=== PATIENT | female | born 1965 | race Two or more races ===

== ENCOUNTER 2022-08-23 22:56 | Inpatient (IN) | payer BC, OTHER ==
[~2022-08-23] VITALS: Ht 170.2 cm; Wt 56.7 kg
--- NOTE | 2022-08-23 23:05 | NUR ---
DREA 878 FROM HOME FOR C/O ABD PAIN AND N/V X 1 HOUR. PT HAD ERCP AT [facility] TODAY. PT AAOX4 BREATHING EVENLYU AND UNLABORED. PT TEARFUL AND UNCONSOLABLE. PT ATTACHED TO MONITOR AND POX.
[2022-08-23] MEDS ORDERED: ONDANSETRON HCL/PF 4 MG/2 ML VIAL IVP ONE (23:30)
[2022-08-23] MEDS ORDERED: HYDROMORPHONE INJ 2 MG/ML DISP.SYRIN IV ONE (23:30)
[2022-08-23] MEDS ORDERED: IV NS 0.9% 1,000 ML BAG IV ONE (23:30)
[2022-08-23] MEDS ORDERED: ONDANSETRON HCL/PF 4 MG/2 ML VIAL ONE (23:31)
[2022-08-23] MEDS ORDERED: HYDROMORPHONE 1 MG/1 ML DISP.SYRIN ONE (23:32)
[2022-08-23] MEDS ORDERED: IV NS 0.9% 250 ML IV ONE (23:39)
[2022-08-23] MEDS ORDERED: CT SWABBABLE VALVE TRANS SET 1 EA INFUS.SET MC ONE (23:39)
[2022-08-23] MEDS ORDERED: IOHEXOL-300 100 ML VIAL IV ONE (23:39)
--- NOTE | 2022-08-24 00:49 | NUR ---
LAB AT BEDSIDE
[2022-08-24 01:13] LABS: BASOPHILS % (AUTO) 0.1 % (0.0-2.0); EOSINOPHILS % (AUTO) 0.1 % (0.0-6.0); HEMATOCRIT 44 % (33-45); HEMOGLOBIN 14.3 g/dL (11.5-14.8); LYMPHOCYTES # (AUTO) 0.6 K/uL (0.8-4.8); LYMPHOCYTES % (AUTO) 4.2 % (20.0-44.0); MEAN CORPUSCULAR HGB CONC 33 g/dl (31.0-36.0); MEAN CORPUSCULAR VOLUME 90 fL (82-100); MONOCYTES # (AUTO) 0.9 K/uL (0.1-1.30); MONOCYTES % (AUTO) 5.8 % (2.0-12.0); NEUTROPHILS # (AUTO) 13.5 K/uL (1.8-8.9); NEUTROPHILS % (AUTO) 89.8 % (43.0-81.0); PLATELET COUNT (AUTO) 248 K/uL (150-450); RED BLOOD CELL COUNT(AUTO) 4.89 MIL/uL (4.0-5.2)
[2022-08-24 01:19] LABS: CALCIUM, SERUM 8.8 mg/dL (8.5-10.1); CREATININE 0.6 mg/dL (0.6-1.3); POTASSIUM 3.4 mmol/L (3.5-5.1)
[2022-08-24 01:25] LABS: ALBUMIN 3.9 g/dL (3.4-5.0); BILIRUBIN,DIRECT 0.8 mg/dL (0.0-0.2); BILIRUBIN,TOTAL 1.7 mg/dL (0.2-1.0); TOTAL PROTEIN, SERUM 7.3 g/dL (6.4-8.2)
[2022-08-24] MEDS ORDERED: ONDANSETRON HCL/PF 4 MG/2 ML VIAL ONE (01:35)
--- NOTE | 2022-08-24 01:42 | NUR ---
URINE SPECIMEN SENT TO LAB
--- NOTE | 2022-08-24 01:44 | NUR ---
URINE AND COVID SAMPLE OBTAINED, CALLED LAB FOR TECHNOLOGY SALES SPECIALIST
[2022-08-24] MEDS ORDERED: HYDROMORPHONE 1 MG/1 ML DISP.SYRIN ONE (01:47)
[2022-08-24] MEDS ORDERED: PIPERACILLIN /TAZOBACTAM 3.375 G VIAL IV ONE (01:53)
--- NOTE | 2022-08-24 01:53 | NUR ---
COVID SWAB DONE AND SENT TO LAB
--- NOTE | 2022-08-24 01:59 | NUR ---
ATTEMPTED TO PAGE DR RUSS JOHNSTON - [phone]. AFTER HOURS ANSWERING SERVICE.
[2022-08-24] MEDS ORDERED: HYDROMORPHONE 1 MG/1 ML DISP.SYRIN IV ONE (02:00)
[2022-08-24] MEDS ORDERED: ONDANSETRON HCL/PF 4 MG/2 ML VIAL IV ONE (02:00)
[2022-08-24] MEDS ORDERED: PIPERACILLIN /TAZOBACTAM 3.375 G in IV D5W 50 ML IV ONE (02:00)
[2022-08-24 02:37] LABS: BILIRUBIN,URINE NEGATIVE (NEGATIVE); COLOR,URINE YELLOW (YELLOW); LEUKOCYTE ESTERASE ,URINE NEGATIVE (NEGATIVE); NITRITE, URINE NEGATIVE (NEGATIVE); PROTEIN,URINE NEGATIVE (NEGATIVE); UGLUCOSE NEGATIVE (NEGATIVE); UROBILINOGEN,URINE 0.2 EU/dL (0.2)
[2022-08-24 02:40] LABS: BACTERIA,URINE Rare /HPF (None Seen); SQUAMOUS EPITHELIAL CELL,UR Few /HPF (None Seen); WBC,URINE 0-2 /HPF (0-3)
--- NOTE | 2022-08-24 03:28 | NUR ---
FACESHEET AND CLINICALS FAXED TO [facility].
[2022-08-24] MEDS ORDERED: IV NS 0.9% 500 ML BAG IV ONE (05:00)
--- NOTE | 2022-08-24 05:57 | NUR ---
315-2. PER SPONGE BUFFER. TO GIVE REPORT AFTER CHANGE OF SHIFT.
[2022-08-24] MEDS ORDERED: IV NS 0.9% 1,000 ML BAG IV ONE (06:00)
[2022-08-24] MEDS ORDERED: IV NS 0.9% 1,000 ML IV PRN (06:30)
[2022-08-24] MEDS ORDERED: Z GUARD REMEDY 4 OZ OINT TP PRN (06:30)
[2022-08-24] MEDS ORDERED: ONDANSETRON HCL/PF 4 MG/2 ML VIAL IVP PRN (06:30)
[2022-08-24] MEDS ORDERED: HYDROMORPHONE 1 MG/1 ML DISP.SYRIN IV PRN (07:00)
--- NOTE | 2022-08-24 07:33 | NUR ---
PT REPORT GIVEN TO CHARLIE YOUNG. ROOM 320 PER CHARGE NURSE.
[2022-08-24] MEDS ORDERED: PYRI60TA PO (07:49)
--- NOTE | 2022-08-24 07:58 | NUR ---
pt transferred to 320 via gurney. warm handoff given to rn assigned.
[2022-08-24 08:00] VITALS: BP 127/79
--- NOTE | 2022-08-24 08:10 | NUR ---
RN Receiving Report/Admit. Patient arrived to unit stable. Physician at bedside discussing plan of care with patient and daughter. Patient AOx4, able to express her own concerns. Patient is able to ambulate with steady gait. IN on left hand with no signs of infiltration, no pain reported when providing line care. All safety precautions taken, will follow physicians orders, provide care as needed, and administer medications as prescribed. Call light and table within reach, bed at lowest position. Patient oriented to unit, asked to call for assistance when needed.
[2022-08-24] MEDS ORDERED: MORPHINE SULFATE INJ 2 MG/ML DISP.SYRIN IV PRN (09:00)
[2022-08-24] MEDS ORDERED: PANTOPRAZOLE 40 MG VIAL IV SCH (09:00)
[2022-08-24] MEDS: ENOXAPARIN SODIUM 40 MG/0.4 ML DISP.SYRIN SQ SCH (09:40)
[2022-08-24] MEDS ORDERED: POTASSIUM CHLORIDE 20 MEQ POWDER PACKET PO SCH (10:00)
[2022-08-24] MEDS: PIPERACILLIN /TAZOBACTAM 3.375 G in IV D5W 100 ML IV SCH ×2 (10:25→16:16)
[2022-08-24] MEDS: PYRIDOSTIGMINE BROMIDE 60 MG TABLET PO SCH ×3 (10:25→16:16)
[2022-08-24] MEDS ORDERED: PIPERACILLIN /TAZOBACTAM 3.375 G in IV D5W 50 ML IV SCH (13:00)
[2022-08-24] MEDS ORDERED: ACETAMINOPHEN 325 MG TABLET PO PRN ×2 (13:30→18:20)
[2022-08-24 16:00] VITALS: BP 106/46
--- NOTE | 2022-08-24 17:40 | NUR ---
RN Closing Report Patient AOx4 able to express her concerns. Patient remained safe throughout shift, all safety precautions taken.Care provided as needed and medications administered as prescribed. IV fluids running as ordered, no signs of infiltration. Table and call light within reach, bed at lowest position. Will endorse to night nurse for continuity of care.
--- NOTE | 2022-08-24 19:17 | NUR ---
Patient remained safe throughout shift, stating pain was from 0-3. At around 7pm patients daughter at bedside, patient crying statin pain is 10/10, administered pain medication and zofran as prescribed. Endorsed report to night nurse for continuity of care.
--- NOTE | 2022-08-24 19:45 | NUR ---
MS RN OPENING NOTE: PATIENT WITH ACUTE PANCREATITIS POST ERCP. HX INCLUDES ALS AND MYASTHENIA GRAVIS. A/O X 4 AND ABLE TO MAKE NEEDS KNOWN. IV ACCESS TO LEFT HAND 20 G RUNNING NS AT 75 ML/HR. MORPHINE 4 MG/2ML GIVEN EVERY 4 HOURS FOR PAIN. SAFETY PRECAUTIONS IN PLACE: BED IN LOWEST, LOCKED POSITION, SIDE RAILS UP X 2, TRAY TABLE AND CALL LIGHT WITHIN EASY REACH. WILL CONTINUE TO MONITOR.
[2022-08-24 20:00] VITALS: BP 142/80
[2022-08-24] MEDS: MORPHINE SULFATE INJ 2 MG/ML DISP.SYRIN IV PRN (22:07)
[2022-08-25] MEDS: PIPERACILLIN /TAZOBACTAM 3.375 G in IV D5W 100 ML IV SCH (00:29)
[2022-08-25] MEDS: MORPHINE SULFATE INJ 2 MG/ML DISP.SYRIN IV PRN ×2 (02:23→06:16)
[2022-08-25 06:54] LABS: BASOPHILS % (AUTO) 0.3 % (0.0-2.0); EOSINOPHILS % (AUTO) 1.4 % (0.0-6.0); HEMATOCRIT 35 % (33-45); HEMOGLOBIN 11.8 g/dL (11.5-14.8); LYMPHOCYTES # (AUTO) 1.6 K/uL (0.8-4.8); LYMPHOCYTES % (AUTO) 15.5 % (20.0-44.0); MEAN CORPUSCULAR HGB CONC 34 g/dl (31.0-36.0); MEAN CORPUSCULAR VOLUME 90 fL (82-100); MONOCYTES % (AUTO) 9.6 % (2.0-12.0); NEUTROPHILS # (AUTO) 7.3 K/uL (1.8-8.9); NEUTROPHILS % (AUTO) 73.2 % (43.0-81.0); PLATELET COUNT (AUTO) 222 K/uL (150-450)
--- NOTE | 2022-08-25 07:37 | NUR ---
MS RN OPENING NOTES PT RECEIVED, AWAKE IN BED. A/O X4. ON RA WITH NO SIGNS OF SOB AND LABORED BREATHING. PT DENIES PAIN OR N/V. COOPERATIVE AND ABLE TO MAKE NEEDS KNOWN. IV ACCESS LEFT HAND #20G RUNNING NS @ 75 ML/HR, PATENT AND INTACT. SAFETY PRECAUTIONS IN PLACE. BED IN LOWEST, LOCKED POSITION. SIDE RAILS UP X2. CALL LIGHT WITHIN REACH. WILL CONTINUE TO MONITOR.
[2022-08-25 07:46] LABS: CALCIUM, SERUM 8.3 mg/dL (8.5-10.1); CREATININE 0.5 mg/dL (0.6-1.3); MAGNESIUM 1.8 mg/dL (1.8-2.4); PHOSPHORUS 3.2 mg/dL (2.5-4.9)
[2022-08-25 07:57] LABS: ALBUMIN 3.1 g/dL (3.4-5.0); BILIRUBIN,DIRECT 1.5 mg/dL (0.0-0.2); BILIRUBIN,TOTAL 2.4 mg/dL (0.2-1.0); TOTAL PROTEIN, SERUM 5.9 g/dL (6.4-8.2)
--- NOTE | 2022-08-25 08:34 | NUR ---
MS RN CLOSING NOTE: PATIENT WITH ACUTE PANCREATITIS POST ERCP. HX INCLUDES ALS AND MYASTHENIA GRAVIS. A/O X 4 AND ABLE TO MAKE NEEDS KNOWN. IV ACCESS TO LEFT HAND 20 G RUNNING NS AT 75 ML/HR. MORPHINE 4 MG/2ML GIVEN EVERY 4 HOURS FOR PAIN. SAFETY PRECAUTIONS MAINTAINED: BED IN LOWEST, LOCKED POSITION, SIDE RAILS UP X 2, TRAY TABLE AND CALL LIGHT WITHIN EASY REACH. WILL ENDORSE TO NEXT SHIFT FOR ROBERT.
[2022-08-25 08:42] VITALS: BP 102/64
[2022-08-25 08:55] LABS: POTASSIUM 2.4 mmol/L (3.5-5.1)
[2022-08-25] MEDS: PYRIDOSTIGMINE BROMIDE 60 MG TABLET PO SCH ×2 (09:00→13:00)
[2022-08-25] MEDS: ENOXAPARIN SODIUM 40 MG/0.4 ML DISP.SYRIN SQ SCH (09:00)
[2022-08-25] MEDS ORDERED: PANTOPRAZOLE 40 MG TABLET.DR PO SCH (09:00)
[2022-08-25] MEDS ORDERED: POTASSIUM CL. PREMIX PERIPHER. 50 ML IV SCH (10:00)
--- NOTE | 2022-08-25 15:00 | NUR ---
ms rn patient transferred to [facility] for higher level of care, report given to Ileana. all needs attended.patient 's heplock intact, was not removed per patient's request,no s/s of infiltration/ infection. all needs attended.
== END 2022-08-25 16:21 | disposition short-term general hospital (02) | DRG 393 ==
LOC: ER 22:58 → MED 08-24 05:53
PROVIDERS: ADMIT Internal Medicine; ATTEND Internal Medicine
DX: K91.89 Other postprocedural complications and disorders of digestive system (principal); K85.80 Other acute pancreatitis without necrosis or infection; G12.21 Amyotrophic lateral sclerosis; Z90.49 Acquired absence of other specified parts of digestive tract; Z20.822 Contact with and (suspected) exposure to COVID-19; G70.00 Myasthenia gravis without (acute) exacerbation; Y83.8 Other surgical procedures as the cause of abnormal reaction of the patient, or of later complication, without mention of misadventure at the time of the procedure; Y73.8 Miscellaneous gastroenterology and urology devices associated with adverse incidents, not elsewhere classified; Y92.009 Unspecified place in unspecified non-institutional (private) residence as the place of occurrence of the external cause; R74.01 Elevation of levels of liver transaminase levels
CPT/HCPCS: 36415; 71045-TC; 74181-TC; 80048-TC; 80076-TC; 81001; 83690-TC; 83735-TC; 84100-TC; 85025-TC; 85730-TC; C9113; C9803; G0378; J1170; J1650; J2270; J2405; J2543; J3480; J7030; J7040; J7050; J7060; Q9967